=== PATIENT | male | born 1945 | race Caucasian/White ===

== ENCOUNTER 2017-11-13 06:09 | Observation (INO) | payer MEDICARE ==
[2017-11-11 09:30] VITALS: BP 118/69
[2017-11-11 09:45] VITALS: BP 118/69
[2017-11-11 09:51] LABS: BASOPHILS % (AUTO) 1.1 % (0.0-5.0); EOSINOPHILS % (AUTO) 2.5 % (0.0-8.0); HEMATOCRIT 47.2 % (42-54); LYMPHOCYTES % (AUTO) 26.1 % (21.0-51.0); MEAN CORPUSCULAR HEMOGLOBIN 30.7 pg (27.0-33.0); MEAN CORPUSCULAR VOLUME 90.1 fL (79-99); MONOCYTES % (AUTO) 10.7 % (3.0-13.0); NEUTROPHILS % (AUTO) 59.6 % (40.0-77.0); PLATELET COUNT (AUTO) 231 K/uL (130-400); RED BLOOD CELL COUNT(AUTO) 5.24 MIL/uL (4.50-6.20); RED CELL DISTRIBUTION WIDTH 15.2 % (11.0-15.5); WHITE BLOOD COUNT (AUTO) 7.8 K/uL (4.8-10.8)
[2017-11-11 10:06] LABS: CREATININE 1.3 mg/dL (0.5-1.5); POTASSIUM 4.6 mmol/L (3.5-5.1)
[2017-11-11 10:18] LABS: INR 1.02 (0.85-1.15); PROTHROMBIN TIME 10.7 SEC (9.6-11.6)
[2017-11-11 10:29] LABS: PARTIAL THROMBOPLASTIN TIME 25.6 SEC (26.3-35.5)
[2017-11-13] VITALS (12 sets, daily range): BP systolic 92–121; BP diastolic 54–77
[~2017-11-13] VITALS: Ht 167.6 cm; Wt 68.2 kg
[~2017-11-13 06:09] MED LIST: AMLO5TAB2 PO; ASPI-1181 PO; BUDE10.2 IH; CARV6.25 PO; CLOP75TA14 PO; FURO20TA4 PO; LEVO150T11 PO; NAPR220C15 PO; OMEP40CA37 PO; PANT40TA25 PO; ROSU10TA35 PO; SACU1TAB PO; SERT100T12 PO; TAMS0.4C32 PO; TIOT18CA3 IH; TRAZ-144 PO; VARE1TAB22 PO
[2017-11-13] MEDS: SODIUM CHLORIDE 0.9% 1000ML 1,000 ML IV SCH ×2 (06:51→16:28)
[2017-11-13] MEDS ORDERED: MEPERIDINE-PF 25 MG/ML SYG ONE ×3 (09:28→10:33)
[2017-11-13] MEDS ORDERED: BUPIVACAINE/PF 0.25% 30ML VIAL IJ ONE (09:28)
[2017-11-13] MEDS ORDERED: MIDAZOLAM HCL 1 MG/ML 2ML VIAL ONE ×2 (09:28→10:33)
[2017-11-13] MEDS ORDERED: LIDOCAINE HCL 1% MDV 50ML VIAL ONE (09:29)
[2017-11-13] MEDS ORDERED: CLINDAMYCIN 600 MG/D5% WATER 100 ML IV ONE (09:29)
[2017-11-13] MEDS ORDERED: TEMAZEPAM 30 MG CAP PO PRN (11:30)
[2017-11-13] MEDS ORDERED: ACETAMINOPHEN 325 MG TAB PO PRN (11:30)
[2017-11-13] MEDS ORDERED: ACETAMINOPHEN-CODEINE 300/30MG TAB PO PRN ×2 (11:30)
[2017-11-13] MEDS ORDERED: ONDANSETRON HCL 4 MG/2 ML VIAL IV PRN (11:30)
[2017-11-13] MEDS: IPRATROPIUM 0.5 MG/2.5 ML INH IH SCH ×3 (12:12→22:53)
[2017-11-13] MEDS: ALBUTEROL SULFATE 0.083% 2.5 MG/3 ML INH IH SCH ×3 (12:13→22:53)
[2017-11-13] MEDS ORDERED: SACU1TAB7 PO (16:24)
[2017-11-13] MEDS: BUDESONIDE 0.5 MG/2 ML INH IH SCH (19:28)
[2017-11-13] MEDS ORDERED: TAMSULOSIN HCL 0.4 MG CAP.ER.24H PO SCH (21:00)
[2017-11-13] MEDS ORDERED: ASPIRIN 81 MG EC TAB PO SCH (21:00)
[2017-11-13] MEDS ORDERED: CLOPIDOGREL BISULFATE 75 MG TAB PO SCH (21:00)
[2017-11-13] MEDS ORDERED: AMLODIPINE BESYLATE 5 MG TAB PO SCH (21:00)
[2017-11-13] MEDS ORDERED: LEVOTHYROXINE 150 MCG TABLET PO SCH (21:00)
[2017-11-13] MEDS ORDERED: PANTOPRAZOLE SODIUM 40 MG TABLET.DR PO SCH (21:00)
[2017-11-13] MEDS: CARVEDILOL 6.25 MG TABLET PO SCH (22:11)
[2017-11-14 00:35] VITALS: BP 135/75
[2017-11-14 04:12] VITALS: BP 109/75
[2017-11-14] MEDS: IPRATROPIUM 0.5 MG/2.5 ML INH IH SCH (06:22)
[2017-11-14] MEDS: ALBUTEROL SULFATE 0.083% 2.5 MG/3 ML INH IH SCH (06:23)
[2017-11-14 07:00] VITALS: BP 118/73
[2017-11-14] MEDS: BUDESONIDE 0.5 MG/2 ML INH IH SCH (07:04)
[2017-11-14 10:49] VITALS: BP 118/73
[2017-11-14] MEDS: CARVEDILOL 6.25 MG TABLET PO SCH (10:49)
[2017-11-15] MEDS ORDERED: FUROSEMIDE 20 MG TABLET PO SCH (09:00)
== END 2017-11-14 10:30 | disposition home or self-care (01) ==
LOC: DAH 06:09 → DAHIP 06:10 → 2AH 15:53
PROVIDERS: ADMIT Internal Medicine; ATTEND Internal Medicine
DX: I25.5 Ischemic cardiomyopathy (principal); I25.10 Atherosclerotic heart disease of native coronary artery without angina pectoris; I11.0 Hypertensive heart disease with heart failure; I50.22 Chronic systolic (congestive) heart failure; E03.9 Hypothyroidism, unspecified; J44.9 Chronic obstructive pulmonary disease, unspecified; N40.0 Benign prostatic hyperplasia without lower urinary tract symptoms; E78.5 Hyperlipidemia, unspecified; I25.2 Old myocardial infarction; F32.9 Major depressive disorder, single episode, unspecified; Z87.891 Personal history of nicotine dependence; Z80.7 Family history of other malignant neoplasms of lymphoid, hematopoietic and related tissues; Z95.5 Presence of coronary angioplasty implant and graft; Z95.810 Presence of automatic (implantable) cardiac defibrillator; Z88.0 Allergy status to penicillin; Z79.899 Other long term (current) drug therapy
CPT/HCPCS: 33249; 36415; 71045; 80048; 85025; 85610; 85730; 94640 ×5; 94664; C1721; C1895 ×2; G0378 ×28; J2175 ×3; J2250 ×2; J3490 ×3; J7030; 99152; 99153

== ENCOUNTER 2017-12-29 10:00 | Inpatient (IN) | payer MEDICARE ==
[~2017-12-29] VITALS: Ht 167.6 cm; Wt 70.8 kg
[~2017-12-29 10:00] MED LIST changes: -CLOP75TA14 PO; -LEVO150T11 PO; -NAPR220C15 PO; -PANT40TA25 PO; -SACU1TAB PO; -VARE1TAB22 PO
[2017-12-29 11:24] VITALS: BP 160/68
[2017-12-29 11:42] LABS: BASOPHILS % (AUTO) 0.7 % (0.0-5.0); EOSINOPHILS % (AUTO) 1.1 % (0.0-8.0); LYMPHOCYTES % (AUTO) 20.3 % (21.0-51.0); MEAN CORPUSCULAR HEMOGLOBIN 30.6 pg (27.0-33.0); MEAN CORPUSCULAR HGB CONC 33.8 g/dL (32.0-36.0); MEAN CORPUSCULAR VOLUME 90.5 fL (79-99); MONOCYTES % (AUTO) 7.9 % (3.0-13.0); PLATELET COUNT (AUTO) 223 K/uL (130-400); RED BLOOD CELL COUNT(AUTO) 5.31 MIL/uL (4.50-6.20); RED CELL DISTRIBUTION WIDTH 14.8 % (11.0-15.5); WHITE BLOOD COUNT (AUTO) 9.5 K/uL (4.8-10.8)
[2017-12-29 11:53] LABS: HEMOGLOBIN A1C 5.4 % (4.0-6.0)
[2017-12-29 11:54] LABS: ALBUMIN 3.8 g/dL (3.5-5.0); BILIRUBIN,TOTAL 0.5 mg/dL (0.2-1.0); POTASSIUM 4.6 mmol/L (3.5-5.1); TOTAL PROTEIN, SERUM 7.3 g/dL (6.0-8.3)
[2017-12-29 11:55] LABS: INR 1.03 (0.85-1.15); PARTIAL THROMBOPLASTIN TIME 25.9 SEC (26.3-35.5); PROTHROMBIN TIME 10.8 SEC (9.6-11.6)
[2017-12-29] MEDS ORDERED: FLONASE NASAL (12:06)
[2017-12-29] MEDS ORDERED: ALBU90AE IH (12:06)
[2017-12-29] MEDS ORDERED: LEVO150T11 PO (12:06)
[2017-12-29] MEDS ORDERED: BUDE10.2 IH (12:06)
[2017-12-30] VITALS (21 sets, daily range): BP systolic 89–146; BP diastolic 52–79
[2017-12-30] MEDS ORDERED: SACU1TAB7 PO (09:20)
[2017-12-30] MEDS ORDERED: CLOP75TA14 PO (09:20)
[2017-12-30] MEDS ORDERED: LACTATED RINGERS 1000ML 1,000 ML IV ONE (09:30)
[2017-12-30] MEDS ORDERED: CEFUROXIME SODIUM 1.5 GM VIAL ONE (09:30)
[2017-12-30] MEDS ORDERED: CLINDAMYCIN 900 MG/D5% WATER 50 ML IV ONE (10:06)
[2017-12-30] MEDS ORDERED: MIDAZOLAM HCL 1 MG/ML 2ML VIAL ONE (10:37)
[2017-12-30] MEDS ORDERED: FENTANYL CITRATE PF 50 MCG/1 ML 5ML AMP IV ONE (10:37)
[2017-12-30] MEDS ORDERED: PROPOFOL 10 MG/ML 20ML VIAL IV ONE (10:37)
[2017-12-30] MEDS ORDERED: THROMBIN-JMI 5000 UNIT/VIAL TP ONE (10:59)
[2017-12-30] MEDS ORDERED: BACITRACIN 50,000 UNIT VIAL ONE (11:09)
[2017-12-30] MEDS ORDERED: OCTYL 2-CYANOACRYLATE 1 EACH TP ONE (11:09)
[2017-12-30] MEDS ORDERED: EPHEDRINE SULFATE 50 MG/ML AMPULE ONE (12:04)
[2017-12-30] MEDS ORDERED: HYDROCODONE/ACETAMINOPHEN 5/325 MG TAB PO PRN (13:00)
[2017-12-30] MEDS ORDERED: ACETAMINOPHEN 325 MG TAB PO PRN (13:00)
[2017-12-30] MEDS ORDERED: SODIUM CHLORIDE 0.9% 1000ML 1,000 ML IV SCH (13:00)
[2017-12-30] MEDS ORDERED: ONDANSETRON HCL 4 MG/2 ML VIAL IVP PRN (13:00)
[2017-12-30] MEDS ORDERED: MAGNESIUM HYDROXIDE 30 ML/UDCUP PO PRN (13:00)
[2017-12-30] MEDS ORDERED: MORPHINE SULFATE 10 MG/ML 1ML SYG ONE (13:28)
[2017-12-30] MEDS ORDERED: ROCURONIUM BROMIDE 10MG/1ML 5ML VL ONE ×2 (13:29→13:30)
[2017-12-30] MEDS ORDERED: ONDANSETRON HCL 4 MG/2 ML VIAL ONE (13:30)
[2017-12-30] MEDS ORDERED: LIDOCAINE HCL 4% LTA SOL 4 ML VIAL ONE (13:30)
[2017-12-30] MEDS ORDERED: LIDOCAINE HCL 2% JELLY 5 ML ONE (13:30)
[2017-12-30] MEDS ORDERED: DEXAMETHASONE SOD PHOSPHATE 10MG/ML 1ML VIAL ONE (13:30)
[2017-12-30] MEDS ORDERED: LIDOCAINE HCL-MPF 1% 5ML AMP IJ ONE (13:30)
[2017-12-30] MEDS ORDERED: PHENYLEPHRINE HCL 10 MG/ML 1ML VIAL IV ONE (13:30)
[2017-12-30] MEDS ORDERED: LIDOCAINE PF 2% 5ML ABBOJECT ONE (13:30)
[2017-12-30] MEDS ORDERED: GLYCOPYRROLATE 0.2 MG/ML 5 ML VIAL ONE (13:30)
[2017-12-30] MEDS ORDERED: PROPOFOL 1000 MG/100 ML 100 ML IV ONE (13:33)
[2017-12-30 14:38] LABS: CREATININE 0.7 mg/dL (0.5-1.5)
[2017-12-30 14:41] LABS: MAGNESIUM 1.6 mg/dL (1.80-2.40); PHOSPHORUS 3.7 mg/dL (2.5-4.9)
[2017-12-30 17:29] LABS: ABG BASE EXCESS -4.8 mmol/L (-2.0-3.0); ABG HCO3 20.1 mmol/L (21.0-28.0); ABG OXYGEN SATURATION 98.6 % (95.0-99.0); ABG PCO2 37 mmHg (35-48)
[2017-12-30] MEDS ORDERED: MAGNESIUM 2GM PREMIX 50ML 50 ML IV SCH (18:00)
[2017-12-30] MEDS ORDERED: LIDOCAINE HCL-MPF 1% 2ML VIAL IVP PRN (18:00)
[2017-12-30] MEDS ORDERED: POTASSIUM CHLORIDE 20MEQ/100ML 100 ML IV PRN (18:00)
[2017-12-30] MEDS ORDERED: POTASSIUM CHLORIDE 10% ELIXIR 20 MEQ/15 ML UDCUP PO PRN (18:00)
[2017-12-30] MEDS: CLINDAMYCIN 600 MG/D5% WATER 50 ML IV SCH ×2 (18:18→21:02)
[2017-12-30] MEDS: FUROSEMIDE 10 MG/ML 2ML VIAL IV SCH (18:34)
[2017-12-30] MEDS: MORPHINE SULFATE 2 MG/ML 1ML SYG IVP PRN (19:48)
[2017-12-30 21:32] LABS: ABG BASE EXCESS -4.9 mmol/L (-2.0-3.0); ABG HCO3 18.7 mmol/L (21.0-28.0); ABG OXYGEN SATURATION 97.9 % (95.0-99.0); ABG PCO2 31 mmHg (35-48)
[2017-12-30] MEDS: TRAMADOL HCL 50 MG TABLET PO PRN (23:38)
[2017-12-31] VITALS (20 sets, daily range): BP systolic 99–144; BP diastolic 55–89
[2017-12-31 04:23] LABS: ABG BASE EXCESS -4.9 mmol/L (-2.0-3.0); ABG HCO3 18.2 mmol/L (21.0-28.0); ABG OXYGEN SATURATION 97.1 % (95.0-99.0); ABG PCO2 29 mmHg (35-48)
[2017-12-31] MEDS: CLINDAMYCIN 600 MG/D5% WATER 50 ML IV SCH (04:27)
[2017-12-31 04:44] LABS: BASOPHILS % (AUTO) 0.4 % (0.0-5.0); EOSINOPHILS % (AUTO) 0.2 % (0.0-8.0); HEMATOCRIT 42.3 % (42-54); LYMPHOCYTES % (AUTO) 8.6 % (21.0-51.0); MEAN CORPUSCULAR HGB CONC 34.6 g/dL (32.0-36.0); MEAN CORPUSCULAR VOLUME 89.6 fL (79-99); MONOCYTES % (AUTO) 10.5 % (3.0-13.0); NEUTROPHILS % (AUTO) 80.3 % (40.0-77.0); PLATELET COUNT (AUTO) 182 K/uL (130-400); RED BLOOD CELL COUNT(AUTO) 4.72 MIL/uL (4.50-6.20)
[2017-12-31] MEDS: MORPHINE SULFATE 2 MG/ML 1ML SYG IVP PRN (04:54)
[2017-12-31 05:18] LABS: ALBUMIN 2.9 g/dL (3.5-5.0); BILIRUBIN,TOTAL 0.5 mg/dL (0.2-1.0); CREATININE 0.8 mg/dL (0.5-1.5); PHOSPHORUS 3.2 mg/dL (2.5-4.9); POTASSIUM 3.6 mmol/L (3.5-5.1); TOTAL PROTEIN, SERUM 6.2 g/dL (6.0-8.3)
[2017-12-31] MEDS: FUROSEMIDE 10 MG/ML 2ML VIAL IV SCH ×2 (06:16→22:38)
[2017-12-31] MEDS ORDERED: KETOROLAC TROMETHAMINE 15MG/ML IV SCH (07:45)
[2017-12-31] MEDS ORDERED: KETOROLAC TROMETHAMINE 15MG/ML ONE (07:56)
[2017-12-31] MEDS ORDERED: HYDROCODONE/ACETAMINOPHEN 5/325 MG TAB PO PRN (08:00)
[2017-12-31] MEDS: PANTOPRAZOLE SODIUM 40 MG TABLET.DR PO SCH ×2 (08:51→21:00)
[2017-12-31] MEDS: KETOROLAC TROMETHAMINE 15MG/ML IV SCH ×2 (14:44→20:58)
[2017-12-31] MEDS ORDERED: MAGNESIUM 2GM PREMIX 50ML 50 ML IV SCH (16:45)
[2017-12-31] MEDS ORDERED: NON-FORMULARY MEDICATION 1 EACH (Albuterol Sulfate (Proair Respiclick) 90 MCG) IH SCH (17:30)
[2017-12-31] MEDS: IPRATROPIUM/ALBUTEROL SULFATE 3 ML SOLUTION IH SCH (18:49)
[2017-12-31] MEDS: BUDESONIDE 0.5 MG/2 ML INH IH SCH (18:57)
[2017-12-31] MEDS: ASPIRIN 81 MG EC TAB PO SCH (20:58)
[2017-12-31] MEDS: FLUTICASONE PROPIONATE 50MCG/SPRAY 16 GM BOTTLE NS SCH (20:58)
[2017-12-31] MEDS: ATORVASTATIN CALCIUM 20 MG TABLET PO SCH (20:59)
[2017-12-31] MEDS: TAMSULOSIN HCL 0.4 MG CAP.ER.24H PO SCH (20:59)
[2017-12-31] MEDS: TRAZODONE HCL 50 MG TAB PO SCH (20:59)
[2017-12-31] MEDS: SACUBITRIL PO SCH (21:00)
[2017-12-31] MEDS: SERTRALINE HCL 50 MG TABLET PO SCH (21:00)
[2017-12-31] MEDS: CARVEDILOL 6.25 MG TABLET PO SCH (21:00)
[2017-12-31] MEDS: AMLODIPINE BESYLATE 5 MG TAB PO SCH (21:00)
[2017-12-31] MEDS: VALSARTAN PO SCH (21:00)
[2017-12-31] MEDS: POLYETHYLENE GLYCOL 3350 17 GM POWD.PACK PO SCH (22:37)
[2018-01-01] VITALS (7 sets, daily range): BP systolic 100–155; BP diastolic 62–94
[2018-01-01] MEDS: IPRATROPIUM/ALBUTEROL SULFATE 3 ML SOLUTION IH SCH ×4 (00:01→20:10)
[2018-01-01] MEDS: KETOROLAC TROMETHAMINE 15MG/ML IV SCH ×4 (03:03→20:56)
[2018-01-01 04:40] LABS: HEMATOCRIT 36.8 % (42-54); MEAN CORPUSCULAR HEMOGLOBIN 31.6 pg (27.0-33.0); MEAN CORPUSCULAR VOLUME 90.2 fL (79-99); PLATELET COUNT (AUTO) 149 K/uL (130-400); RED BLOOD CELL COUNT(AUTO) 4.09 MIL/uL (4.50-6.20); RED CELL DISTRIBUTION WIDTH 14.6 % (11.0-15.5); WHITE BLOOD COUNT (AUTO) 9.3 K/uL (4.8-10.8)
[2018-01-01 04:57] LABS: CREATININE 1.1 mg/dL (0.5-1.5); PHOSPHORUS 2.4 mg/dL (2.5-4.9); POTASSIUM 3.4 mmol/L (3.5-5.1)
[2018-01-01] MEDS: BUDESONIDE 0.5 MG/2 ML INH IH SCH ×2 (05:53→20:10)
[2018-01-01] MEDS: LEVOTHYROXINE 150 MCG TABLET PO SCH (06:06)
[2018-01-01] MEDS: FUROSEMIDE 10 MG/ML 2ML VIAL IV SCH ×2 (06:06→18:12)
[2018-01-01] MEDS: POTASSIUM CHLORIDE 20 MEQ ERTAB PO PRN ×2 (06:07→11:46)
[2018-01-01] MEDS: POLYETHYLENE GLYCOL 3350 17 GM POWD.PACK PO SCH (08:15)
[2018-01-01] MEDS: PANTOPRAZOLE SODIUM 40 MG TABLET.DR PO SCH ×2 (08:16→20:57)
[2018-01-01] MEDS: CARVEDILOL 6.25 MG TABLET PO SCH ×2 (08:16→20:59)
[2018-01-01] MEDS: FLUTICASONE PROPIONATE 50MCG/SPRAY 16 GM BOTTLE NS SCH ×2 (08:17→20:59)
[2018-01-01] MEDS: SACUBITRIL PO SCH ×2 (08:17→21:00)
[2018-01-01] MEDS: VALSARTAN PO SCH ×2 (08:17→21:00)
[2018-01-01] MEDS: ASPIRIN 81 MG EC TAB PO SCH (20:56)
[2018-01-01] MEDS: TRAZODONE HCL 50 MG TAB PO SCH (20:57)
[2018-01-01] MEDS: SERTRALINE HCL 50 MG TABLET PO SCH (20:57)
[2018-01-01] MEDS: ATORVASTATIN CALCIUM 20 MG TABLET PO SCH (20:57)
[2018-01-01] MEDS: TAMSULOSIN HCL 0.4 MG CAP.ER.24H PO SCH (20:57)
[2018-01-01] MEDS: AMLODIPINE BESYLATE 5 MG TAB PO SCH (20:59)
[2018-01-02] MEDS: IPRATROPIUM/ALBUTEROL SULFATE 3 ML SOLUTION IH SCH ×4 (00:17→18:40)
[2018-01-02] MEDS: KETOROLAC TROMETHAMINE 15MG/ML IV SCH ×3 (02:00→13:07)
[2018-01-02 04:00] VITALS: BP 125/77
[2018-01-02] MEDS: LEVOTHYROXINE 150 MCG TABLET PO SCH (06:10)
[2018-01-02] MEDS: FUROSEMIDE 10 MG/ML 2ML VIAL IV SCH ×2 (06:10→17:34)
[2018-01-02] MEDS: POTASSIUM CHLORIDE 20 MEQ ERTAB PO PRN ×2 (06:16→17:35)
[2018-01-02] MEDS: BUDESONIDE 0.5 MG/2 ML INH IH SCH ×2 (06:27→18:45)
[2018-01-02 07:00] VITALS: BP 125/76
[2018-01-02] MEDS: POLYETHYLENE GLYCOL 3350 17 GM POWD.PACK PO SCH (08:01)
[2018-01-02] MEDS: FLUTICASONE PROPIONATE 50MCG/SPRAY 16 GM BOTTLE NS SCH ×2 (08:02→19:48)
[2018-01-02] MEDS: PANTOPRAZOLE SODIUM 40 MG TABLET.DR PO SCH (08:02)
[2018-01-02] MEDS: VALSARTAN PO SCH ×2 (08:02→21:23)
[2018-01-02] MEDS: CARVEDILOL 6.25 MG TABLET PO SCH ×2 (08:02→19:46)
[2018-01-02] MEDS: SACUBITRIL PO SCH ×2 (08:02→21:23)
[2018-01-02] MEDS ORDERED: HYDROCODONE/ACETAMINOPHEN 10/325 MG TAB PO PRN (11:00)
[2018-01-02 11:24] VITALS: BP 108/69
[2018-01-02] MEDS: GABAPENTIN 300 MG CAPSULE PO SCH ×2 (13:07→19:44)
[2018-01-02 16:13] VITALS: BP 102/69
[2018-01-02] MEDS: TRAZODONE HCL 50 MG TAB PO SCH (19:43)
[2018-01-02] MEDS: TAMSULOSIN HCL 0.4 MG CAP.ER.24H PO SCH (19:43)
[2018-01-02] MEDS: ASPIRIN 81 MG EC TAB PO SCH (19:43)
[2018-01-02] MEDS: SERTRALINE HCL 50 MG TABLET PO SCH (19:44)
[2018-01-02] MEDS: ATORVASTATIN CALCIUM 20 MG TABLET PO SCH (19:44)
[2018-01-02 20:06] VITALS: BP 118/67
[2018-01-02] MEDS ORDERED: PHARMACY COMMUNICATION MISC SCH (21:00)
[2018-01-02] MEDS: AMLODIPINE BESYLATE 5 MG TAB PO SCH (21:00)
[2018-01-02] MEDS: TRAMADOL HCL 50 MG TABLET PO PRN (21:33)
[2018-01-03] MEDS: IPRATROPIUM/ALBUTEROL SULFATE 3 ML SOLUTION IH SCH ×5 (00:30→23:15)
[2018-01-03 00:32] VITALS: BP 105/70
[2018-01-03 04:31] VITALS: BP 102/68
[2018-01-03] MEDS: FUROSEMIDE 10 MG/ML 2ML VIAL IV SCH (05:50)
[2018-01-03] MEDS: LEVOTHYROXINE 150 MCG TABLET PO SCH (05:50)
[2018-01-03] MEDS ORDERED: LACTULOSE 20 GM/30 ML UDCUP PO ONE (06:00)
[2018-01-03] MEDS: BUDESONIDE 0.5 MG/2 ML INH IH SCH ×2 (06:58→18:44)
[2018-01-03 07:00] VITALS: BP 92/49
[2018-01-03] MEDS: POLYETHYLENE GLYCOL 3350 17 GM POWD.PACK PO SCH (07:39)
[2018-01-03] MEDS: GABAPENTIN 300 MG CAPSULE PO SCH ×3 (08:38→20:06)
[2018-01-03] MEDS: PANTOPRAZOLE SODIUM 40 MG TABLET.DR PO SCH (08:38)
[2018-01-03] MEDS: SACUBITRIL PO SCH ×2 (08:39→20:10)
[2018-01-03] MEDS: VALSARTAN PO SCH ×2 (08:39→20:10)
[2018-01-03] MEDS: FLUTICASONE PROPIONATE 50MCG/SPRAY 16 GM BOTTLE NS SCH ×2 (08:39→20:07)
[2018-01-03] MEDS: CARVEDILOL 6.25 MG TABLET PO SCH ×2 (08:39→20:11)
[2018-01-03 11:30] VITALS: BP 111/65
[2018-01-03 16:00] VITALS: BP 98/64
[2018-01-03 20:01] VITALS: BP 102/60
[2018-01-03] MEDS: TRAZODONE HCL 50 MG TAB PO SCH (20:06)
[2018-01-03] MEDS: ASPIRIN 81 MG EC TAB PO SCH (20:07)
[2018-01-03] MEDS: ATORVASTATIN CALCIUM 20 MG TABLET PO SCH (20:07)
[2018-01-03] MEDS: SERTRALINE HCL 50 MG TABLET PO SCH (20:07)
[2018-01-03] MEDS: TAMSULOSIN HCL 0.4 MG CAP.ER.24H PO SCH (20:07)
[2018-01-03] MEDS: AMLODIPINE BESYLATE 5 MG TAB PO SCH (20:11)
[2018-01-04] VITALS: BP 96/59
[2018-01-04 04:00] VITALS: BP 108/62
[2018-01-04] MEDS: LEVOTHYROXINE 150 MCG TABLET PO SCH (05:40)
[2018-01-04] MEDS: IPRATROPIUM/ALBUTEROL SULFATE 3 ML SOLUTION IH SCH ×4 (06:22→23:19)
[2018-01-04] MEDS: BUDESONIDE 0.5 MG/2 ML INH IH SCH ×2 (06:22→18:43)
[2018-01-04 07:47] VITALS: BP 109/62
[2018-01-04] MEDS: GABAPENTIN 300 MG CAPSULE PO SCH ×3 (07:57→21:03)
[2018-01-04] MEDS: CARVEDILOL 6.25 MG TABLET PO SCH ×2 (07:57→21:00)
[2018-01-04] MEDS: PANTOPRAZOLE SODIUM 40 MG TABLET.DR PO SCH (07:57)
[2018-01-04] MEDS: FUROSEMIDE 20 MG TABLET PO SCH (07:58)
[2018-01-04] MEDS: VALSARTAN PO SCH ×2 (07:58→21:00)
[2018-01-04] MEDS: FLUTICASONE PROPIONATE 50MCG/SPRAY 16 GM BOTTLE NS SCH ×2 (07:58→21:00)
[2018-01-04] MEDS: SACUBITRIL PO SCH ×2 (07:58→21:00)
[2018-01-04] MEDS: POLYETHYLENE GLYCOL 3350 17 GM POWD.PACK PO SCH (07:58)
[2018-01-04] MEDS ORDERED: MAGNESIUM CITRATE 296 ML SOLUTION PO SCH (09:45)
[2018-01-04 11:00] VITALS: BP 99/64
[2018-01-04] MEDS ORDERED: HYDROCODONE/ACETAMINOPHEN 10/325 MG TAB PO PRN ×2 (11:00)
[2018-01-04 16:45] VITALS: BP 103/65
[2018-01-04 19:44] VITALS: BP 93/61
[2018-01-04] MEDS: ASPIRIN 81 MG EC TAB PO SCH (21:01)
[2018-01-04] MEDS: TAMSULOSIN HCL 0.4 MG CAP.ER.24H PO SCH (21:02)
[2018-01-04] MEDS: ATORVASTATIN CALCIUM 20 MG TABLET PO SCH (21:02)
[2018-01-04] MEDS: TRAZODONE HCL 50 MG TAB PO SCH (21:02)
[2018-01-04] MEDS: SERTRALINE HCL 50 MG TABLET PO SCH (21:03)
[2018-01-05 04:08] VITALS: BP 101/67
[2018-01-05] MEDS: BUDESONIDE 0.5 MG/2 ML INH IH SCH ×2 (06:12→18:43)
[2018-01-05] MEDS: IPRATROPIUM/ALBUTEROL SULFATE 3 ML SOLUTION IH SCH ×4 (06:12→23:09)
[2018-01-05] MEDS: LEVOTHYROXINE 150 MCG TABLET PO SCH (06:22)
[2018-01-05 07:44] VITALS: BP 107/66
[2018-01-05] MEDS: VALSARTAN PO SCH ×2 (09:00→21:00)
[2018-01-05] MEDS: FLUTICASONE PROPIONATE 50MCG/SPRAY 16 GM BOTTLE NS SCH ×2 (09:00→21:58)
[2018-01-05] MEDS: SACUBITRIL PO SCH ×2 (09:00→21:00)
[2018-01-05] MEDS: GABAPENTIN 300 MG CAPSULE PO SCH ×3 (10:24→21:54)
[2018-01-05] MEDS: CARVEDILOL 6.25 MG TABLET PO SCH ×2 (10:24→21:55)
[2018-01-05] MEDS: PANTOPRAZOLE SODIUM 40 MG TABLET.DR PO SCH (10:24)
[2018-01-05] MEDS: FUROSEMIDE 20 MG TABLET PO SCH (10:25)
[2018-01-05] MEDS: POLYETHYLENE GLYCOL 3350 17 GM POWD.PACK PO SCH (10:27)
[2018-01-05 11:23] VITALS: BP 118/62
[2018-01-05] MEDS: TRAMADOL HCL 50 MG TABLET PO PRN (16:09)
[2018-01-05 16:27] VITALS: BP 111/67
[2018-01-05 19:44] VITALS: BP 141/74
[2018-01-05] MEDS: TRAZODONE HCL 50 MG TAB PO SCH (21:52)
[2018-01-05] MEDS: ATORVASTATIN CALCIUM 20 MG TABLET PO SCH (21:53)
[2018-01-05] MEDS: SERTRALINE HCL 50 MG TABLET PO SCH (21:53)
[2018-01-05] MEDS: TAMSULOSIN HCL 0.4 MG CAP.ER.24H PO SCH (21:54)
[2018-01-05] MEDS: ASPIRIN 81 MG EC TAB PO SCH (21:55)
[2018-01-06] MEDS: TRAMADOL HCL 50 MG TABLET PO PRN (00:23)
[2018-01-06 00:31] VITALS: BP 127/74
[2018-01-06 03:58] VITALS: BP 139/66
[2018-01-06 05:00] LABS: CREATININE 1.3 mg/dL (0.5-1.5)
[2018-01-06 05:01] LABS: BASOPHILS % (AUTO) 0.6 % (0.0-5.0); EOSINOPHILS % (AUTO) 4.6 % (0.0-8.0); HEMATOCRIT 35.8 % (42-54); LYMPHOCYTES % (AUTO) 20.1 % (21.0-51.0); MEAN CORPUSCULAR HEMOGLOBIN 31.2 pg (27.0-33.0); MEAN CORPUSCULAR HGB CONC 34.8 g/dL (32.0-36.0); MEAN CORPUSCULAR VOLUME 89.6 fL (79-99); MONOCYTES % (AUTO) 12.4 % (3.0-13.0); NEUTROPHILS % (AUTO) 62.3 % (40.0-77.0); PLATELET COUNT (AUTO) 226 K/uL (130-400); RED CELL DISTRIBUTION WIDTH 14.3 % (11.0-15.5); WHITE BLOOD COUNT (AUTO) 8.1 K/uL (4.8-10.8)
[2018-01-06] MEDS: BUDESONIDE 0.5 MG/2 ML INH IH SCH ×2 (06:01→18:58)
[2018-01-06] MEDS: IPRATROPIUM/ALBUTEROL SULFATE 3 ML SOLUTION IH SCH ×4 (06:01→23:32)
[2018-01-06] MEDS: LEVOTHYROXINE 150 MCG TABLET PO SCH (06:14)
[2018-01-06 07:33] VITALS: BP 100/61
[2018-01-06] MEDS: FLUTICASONE PROPIONATE 50MCG/SPRAY 16 GM BOTTLE NS SCH ×2 (09:00→21:17)
[2018-01-06] MEDS: FUROSEMIDE 20 MG TABLET PO SCH (09:00)
[2018-01-06] MEDS: POLYETHYLENE GLYCOL 3350 17 GM POWD.PACK PO SCH (09:00)
[2018-01-06] MEDS: SACUBITRIL PO SCH ×2 (09:00→21:00)
[2018-01-06] MEDS: VALSARTAN PO SCH ×2 (09:00→21:00)
[2018-01-06] MEDS: CARVEDILOL 6.25 MG TABLET PO SCH ×2 (09:28→21:10)
[2018-01-06] MEDS: GABAPENTIN 300 MG CAPSULE PO SCH ×3 (09:30→21:09)
[2018-01-06] MEDS: PANTOPRAZOLE SODIUM 40 MG TABLET.DR PO SCH (09:30)
[2018-01-06 11:37] VITALS: BP 95/62
[2018-01-06 16:31] VITALS: BP 116/70
[2018-01-06 19:44] VITALS: BP 119/52
[2018-01-06] MEDS: ATORVASTATIN CALCIUM 20 MG TABLET PO SCH (21:09)
[2018-01-06] MEDS: SERTRALINE HCL 50 MG TABLET PO SCH (21:09)
[2018-01-06] MEDS: ASPIRIN 81 MG EC TAB PO SCH (21:10)
[2018-01-06] MEDS: TAMSULOSIN HCL 0.4 MG CAP.ER.24H PO SCH (21:10)
[2018-01-06] MEDS: TRAZODONE HCL 50 MG TAB PO SCH (22:15)
[2018-01-07] VITALS: BP 103/59
[2018-01-07 04:00] VITALS: BP 111/46
[2018-01-07] MEDS: IPRATROPIUM/ALBUTEROL SULFATE 3 ML SOLUTION IH SCH ×2 (05:56→11:07)
[2018-01-07] MEDS: BUDESONIDE 0.5 MG/2 ML INH IH SCH (06:10)
[2018-01-07] MEDS: LEVOTHYROXINE 150 MCG TABLET PO SCH (06:19)
[2018-01-07 07:30] VITALS: BP 117/65
[2018-01-07] MEDS: PANTOPRAZOLE SODIUM 40 MG TABLET.DR PO SCH (08:33)
[2018-01-07] MEDS: GABAPENTIN 300 MG CAPSULE PO SCH (08:33)
[2018-01-07] MEDS: FUROSEMIDE 20 MG TABLET PO SCH (08:33)
[2018-01-07] MEDS: CARVEDILOL 6.25 MG TABLET PO SCH (08:34)
[2018-01-07] MEDS: POLYETHYLENE GLYCOL 3350 17 GM POWD.PACK PO SCH (08:34)
[2018-01-07] MEDS: FLUTICASONE PROPIONATE 50MCG/SPRAY 16 GM BOTTLE NS SCH (08:38)
[2018-01-07] MEDS: VALSARTAN PO SCH (08:38)
[2018-01-07] MEDS: SACUBITRIL PO SCH (08:38)
[2018-01-07 09:55] VITALS: BP 150/53
[2018-01-07 12:25] VITALS: BP 107/65
== END 2018-01-07 15:40 | disposition home or self-care (01) | DRG 164 ==
LOC: DAHIP 12-30 08:44 → EDSTATUS 12-30 10:00 → 2BH 12-30 14:51 → 2DH 12-31 16:25
PROVIDERS: ADMIT Thoracic Surgery (Cardiothoracic Vascular Surgery); ATTEND Thoracic Surgery (Cardiothoracic Vascular Surgery)
PROC: 0BTG0ZZ Resection of Left Upper Lung Lobe, Open Approach (ICD-10-PCS; principal; 2017-12-30 10:34)
PROC: 5A1935Z Respiratory Ventilation, Less than 24 Consecutive Hours (ICD-10-PCS; 2017-12-30 10:34)
PROC: 0BH17EZ Insertion of Endotracheal Airway into Trachea, Via Natural or Artificial Opening (ICD-10-PCS; 2017-12-30 10:34)
DX: C34.12 Malignant neoplasm of upper lobe, left bronchus or lung (principal); I42.9 Cardiomyopathy, unspecified; D69.6 Thrombocytopenia, unspecified; R64 Cachexia; E44.0 Moderate protein-calorie malnutrition; J44.9 Chronic obstructive pulmonary disease, unspecified; I11.0 Hypertensive heart disease with heart failure; J93.82 Other air leak; I50.22 Chronic systolic (congestive) heart failure; I13.0 Hypertensive heart and chronic kidney disease with heart failure and stage 1 through stage 4 chronic kidney disease, or unspecified chronic kidney disease; E03.9 Hypothyroidism, unspecified; E78.5 Hyperlipidemia, unspecified; F32.9 Major depressive disorder, single episode, unspecified; I25.10 Atherosclerotic heart disease of native coronary artery without angina pectoris; N18.9 Chronic kidney disease, unspecified; N40.0 Benign prostatic hyperplasia without lower urinary tract symptoms; Z85.118 Personal history of other malignant neoplasm of bronchus and lung; Z87.891 Personal history of nicotine dependence; Z95.810 Presence of automatic (implantable) cardiac defibrillator; Z88.0 Allergy status to penicillin; Z88.8 Allergy status to other drugs, medicaments and biological substances
CPT/HCPCS: 36415; 36600; 71045; 71046; 80048; 80053; 82330; 82435; 82803; 82947; 83036; 83605; 83735; 84100; 84132; 84295; 85018; 85025; 85027; 85610; 85730; 86850; 86900; 86901; 86922; 87070; 87076; 87101; 87116; 87205; 87206; 88304; 88307; 88309; 88331; 88360; 88377; 93005; 94002; 94640; 94660; 94664; 97039; A4218; A4344; A4606; A7048; J0697; J1100; J1885; J1940; J2001; J2250; J2270; J2370; J2405; J2704; J3010; J3475; J3480; J3490; J7030; J7040; J7120

== ENCOUNTER → 2018-01-21 | Outpatient (CLI) | payer MEDICARE ==
[~2018-01-21] MED LIST changes: +ALBU90AE IH; +FLONASE NASAL; -FURO20TA4 PO; +LEVO150T11 PO; +SACU1TAB7 PO
== END | disposition home or self-care (01) ==
LOC: RAH 13:30
PROVIDERS: ATTEND Thoracic Surgery (Cardiothoracic Vascular Surgery)
DX: J90 Pleural effusion, not elsewhere classified (principal); Z95.0 Presence of cardiac pacemaker
CPT/HCPCS: 71250

== ENCOUNTER → 2018-08-10 | Outpatient (CLI) | payer MEDICARE ==
[~2018-08-10] MED LIST changes: -AMLO5TAB2 PO; +AMLO5TAB7 PO; +ROSU10TA27 PO; -ROSU10TA35 PO; -TRAZ-144 PO; +TRAZ-185 PO
== END | disposition home or self-care (01) ==
LOC: SHCH 15:12
PROVIDERS: ATTEND Internal Medicine Cardiovascular Disease
DX: I34.0 Nonrheumatic mitral (valve) insufficiency (principal); I34.1 Nonrheumatic mitral (valve) prolapse; M79.4 Hypertrophy of (infrapatellar) fat pad; R29.898 Other symptoms and signs involving the musculoskeletal system; Z95.0 Presence of cardiac pacemaker
CPT/HCPCS: 93306

== ENCOUNTER → 2018-08-20 | Outpatient (CLI) | payer MEDICARE | END | disposition home or self-care (01) | LOC: SHCH 10:00 | PROVIDERS: ATTEND Internal Medicine Cardiovascular Disease | DX: I71.4 Abdominal aortic aneurysm, without rupture (principal); I73.9 Peripheral vascular disease, unspecified; I70.0 Atherosclerosis of aorta | CPT/HCPCS: 93978 ==